=== PATIENT | female | born 1985 | race Caucasian/White ===

== ENCOUNTER 2016-10-18 19:12 | Emergency (ER) | payer MEDICAID ==
[2016-10-18 19:52] VITALS: TEMP 98.2
--- NOTE | 2016-10-18 20:05 | ED PDOC ---
HPI: Allergic Reaction Time Seen by Provider: 10/18/16 19:55 Chief Complaint (Nursing): Allergic Reaction Chief Complaint (Provider): allergic reaction History Per: Patient History/Exam Limitations: no limitations Onset/Duration Of Symptoms: Days (x 3) Current Symptoms Are (Timing): Still Present Possible Cause: Medication (percocet) Associated Symptoms: Skin Rash, Redness Additional Complaint(s): Sammi Alvarado is a 31 year old female, with a preious medical history of asthma, who presents to the ED with complaints of a possible allergic reaction ongoing for the past 3 days. Pt reports to undergoing a surgical procedure for a biopsy sample and was prescribed percocet 4 days ago. Pt reports since taking the percocet she began to experience rashes to the skin and states to feeling her throat is swelling. Pt denies any shortness of breath or difficulty swallowing. Pt denies any other medical complaint at this time. PMD: none provided Past Medical History Reviewed: Historical Data, Nursing Documentation, Vital Signs Vital Signs: Last Vital Signs Temp 98.2 F 10/18/16 19:47 Pulse 114 H 10/18/16 19:47 Resp 17 10/18/16 19:47 BP 150/92 H 10/18/16 19:47 Pulse Ox 99 10/18/16 19:47 - Medical History PMH: Diabetes - Family History Family History: States: Unknown Family Hx - Home Medications Home Medications: Ambulatory Orders Medication Instructions Recorded Famotidine [Pepcid] 20 mg PO DAILY #5 tab 10/18/16 predniSONE [predniSONE Tab] 20 mg PO DAILY #12 tab 10/18/16 traMADol [Ultram] 50 mg PO Q6H PRN #15 tab 10/18/16 - Allergies Allergies/Adverse Reactions: Allergies Allergy/AdvReac Type Severity Reaction Status Date / Time Penicillins Allergy Mild RASH Verified 10/18/16 19:52 Review of Systems ROS Statement: Except As Marked, All Systems Reviewed And Found Negative ENT: Positive for: Throat Swelling Respiratory: Negative for: Shortness of Breath Skin: Positive for: Rash Physical Exam - Reviewed Nursing Documentation Reviewed: Yes Vital Signs Reviewed: Yes - Physical Exam Appears: Positive for: Well, Non-toxic, No Acute Distress Head Exam: Positive for: ATRAUMATIC, NORMAL INSPECTION, NORMOCEPHALIC Skin: Positive for: Warm, Dry, Rash (diffuse maculopapular. varies in shape and size. ) ENT: Positive for: Normal ENT Inspection. Negative for: Pharyngeal Erythema, Tonsillar Exudate, Tonsillar Swelling Neck: Positive for: Normal, Painless ROM Cardiovascular/Chest: Positive for: Regular Rate, Rhythm Respiratory: Positive for: Normal Breath Sounds. Negative for: Decreased Breath Sounds, Accessory Muscle Use, Respiratory Distress Extremity: Positive for: Normal ROM Neurologic/Psych: Positive for: Alert, Oriented. Negative for: Motor/Sensory Deficits - ECG O2 Sat by Pulse Oximetry: 99 (RA) Pulse Ox Interpretation: Normal Disposition - Clinical Impression Clinical Impression: Allergic reaction - Disposition Referrals: [facility] [Outside] Disposition: Routine/Home Disposition Time: 20:37 Condition: STABLE Prescriptions: Famotidine [Pepcid] 20 mg PO DAILY #5 tab traMADol [Ultram] 50 mg PO Q6H PRN #15 tab PRN Reason: Pain predniSONE [predniSONE Tab] 20 mg PO DAILY #12 tab Instructions: Urticaria (ED) Medical Decision Making Medical Decision Making: Initial Impression: Allergic reaction Initial Plan: * urine * pepcid * solumedrol * reevaluation Scribe Attestation: Documented by Lidya Mcgregor, acting as a scribe for Lela Cao PA-C. Provider Scribe Attestation: All medical record entries made by the Scribe were at my direction and personally dictated by me. I have reviewed the chart and agree that the record accurately reflects my personal performance of the history, physical exam, medical decision making, and the department course for this patient. I have also personally directed, reviewed, and agree with the discharge instructions and disposition.
[2016-10-18 23:25] VITALS: PULSE 105
[2016-10-18 23:40] VITALS: BP 116/80; RESP 18; O2SAT 100
--- NOTE | 2016-10-19 07:42 | CARD ---
APPROVED REPORT EKG Measurement Heart [id number] [id number] [id number] <Conclusion> Sinus tachycardia Minimal voltage criteria for LVH, may be normal variant Borderline ECG
== END 2016-10-18 23:38 | disposition home or self-care (01) ==
LOC: H.ER 19:12
DX: R00.0 Tachycardia, unspecified (principal); E11.9 Type 2 diabetes mellitus without complications; J45.909 Unspecified asthma, uncomplicated

== ENCOUNTER 2017-07-12 12:15 | Emergency (ER) | payer MEDICAID ==
[2017-07-12 12:47] VITALS: BP 135/88; PULSE 88; RESP 16; TEMP 97; O2SAT 100
--- NOTE | 2017-07-12 13:52 | ED PDOC ---
HPI: Abdomen Time Seen by Provider: 07/12/17 12:59 Chief Complaint (Nursing): Abdominal Pain Chief Complaint (Provider): abdominal pain History Per: Patient (32 y/o female here with lower abdominal pain worse after urination x 1 week and 1/2. Notes urine positive. Denies any vaginal bleeding. Has h/o PCOS. Denies any fevers/chills. notes some ruq abdominal pain and attributes it to h/o hernia s/p sx repair January 2017. Has h/ o cholecystectomy as well.) Past Medical History Reviewed: Historical Data, Nursing Documentation, Vital Signs Vital Signs: Last Vital Signs Temp 97.0 F L 07/12/17 12:44 Pulse 88 07/12/17 12:44 Resp 16 07/12/17 12:44 BP 135/88 07/12/17 12:44 Pulse Ox 100 07/12/17 15:25 - Medical History PMH: Diabetes - Surgical History Surgical History: Cholecystectomy (summer 2016) - Family History Family History: States: Unknown Family Hx - Home Medications Home Medications: Ambulatory Orders Medication Instructions Recorded Famotidine [Pepcid] 20 mg PO DAILY #5 tab 10/18/16 predniSONE [predniSONE Tab] 20 mg PO DAILY #12 tab 10/18/16 traMADol [Ultram] 50 mg PO Q6H PRN #15 tab 10/18/16 - Allergies Allergies/Adverse Reactions: Allergies Allergy/AdvReac Type Severity Reaction Status Date / Time Penicillins Allergy Mild RASH Verified 10/18/16 19:52 diphenhydramine Allergy SHORTNESS Verified 07/12/17 12:44 [From Benadryl] OF BREATH hydromorphone [From Dilaudid] Allergy RASH Verified 07/12/17 12:44 oxycodone Allergy RASH Verified 07/12/17 12:44 Review of Systems ROS Statement: Except As Marked, All Systems Reviewed And Found Negative Gastrointestinal: Positive for: Abdominal Pain Genitourinary Female: Positive for: Dysuria Physical Exam - Reviewed Nursing Documentation Reviewed: Yes Vital Signs Reviewed: Yes - Physical Exam Appears: Positive for: Well, Non-toxic, No Acute Distress Head Exam: Positive for: ATRAUMATIC, NORMAL INSPECTION, NORMOCEPHALIC Skin: Positive for: Normal Color, Warm, DRY Eye Exam: Positive for: EOMI, Normal appearance, PERRL ENT: Positive for: Normal ENT Inspection Neck: Positive for: Normal, Painless ROM Cardiovascular/Chest: Positive for: Regular Rate, Rhythm Respiratory: Positive for: CNT, Normal Breath Sounds Gastrointestinal/Abdominal: Positive for: Normal Exam, Bowel Sounds, Soft, Tenderness (ruq tenderness noted. Nontender lower abdomen.) Pelvic Exam: Positive for: Other (CLOSED CERVIX.). Negative for: Active Bleeding, Tender W/Cervical Motion, Tender Adnexa Back: Positive for: Normal Inspection Extremity: Positive for: Normal ROM Neurologic/Psych: Positive for: Alert, Oriented - Laboratory Results Result Diagrams: 07/12/17 13:50 07/12/17 13:50 Urine POC: Positive - ECG O2 Sat by Pulse Oximetry: 100 - Progress ED Course And Treament: IMPRESSION: Tiny gestational sac below threshold for calculation of reliable gestational age. No pole or yolk sac identified. Simple cyst left adnexa. No visible ectopic gestation. Disposition - Clinical Impression Clinical Impression: Abdominal pain during - Patient ED Disposition Is Patient to be Admitted: No - Disposition Disposition: Routine/Home Disposition Time: 15:31 Condition: FAIR Additional Instructions: F/U IN 2 DAYS FOR REPEAT BETA HCG AND AGAIN IN 4 DAYS. Instructions: Abdominal Pain in (ED) Forms: [facility] ([place]ian), [facility] ED School/Work Excuse
[2017-07-12 14:02] LABS: BASO % 0.3 % (0.0-2.0); EOS # 0.2 K/uL (0.0-0.7); EOS % 1.4 % (0.0-4.0); HEMATOCRIT 37.1 % (34.0-47.0); LYMPH # 3.6 K/uL (1.0-4.3); MEAN CELL VOLUME 80.4 fl (81.0-99.0); MEAN CORPUSCULAR HEMOGLOBIN 25.9 pg (27.0-31.0); MEAN CORPUSCULAR HGB CONC 32.2 g/dL (33.0-37.0); MEAN PLATELET VOLUME 9.2 fl (7.2-11.7); MONO # 0.6 K/uL (0.0-0.8); MONO % 4.6 % (0.0-10.0); NEUT # 7.6 K/uL (1.8-7.0); NEUT % 63.7 % (50.0-75.0); RED CELL DISTRIBUTION WIDTH 16.5 % (11.5-14.5); WHITE BLOOD COUNT 11.9 K/uL (4.8-10.8)
[2017-07-12 14:09] LABS: ALKALINE PHOSPHATASE 73 U/L (38-126); ALT/SGPT 102 U/L (9-52); AST/SGOT 81 U/L (14-36); BILIRUBIN,TOTAL 1.2 mg/dl (0.2-1.3); BLOOD UREA NITROGEN 6 mg/dl (7-17); CALCIUM 8.5 mg/dL (8.4-10.2); CARBON DIOXIDE 21 mmol/L (22-30); CHLORIDE 106 mmol/L (98-107); GFR AFRICAN-AMERICAN > 60; GLUCOSE,RANDOM 251 mg/dL (65-105); SODIUM 137 mmol/l (132-148); TOTAL PROTEIN 8.9 G/DL (6.3-8.2)
[2017-07-12 14:25] LABS: ALB/GLOB RATIO 0.9 (1.0-2.1)
[2017-07-12 14:27] LABS: RBC URINE 3 /hpf (0-3); URINE BILIRUBIN NEGATIVE (NEGATIVE); URINE BLOOD NEGATIVE (NEGATIVE); URINE COLOR YELLOW (YELLOW); URINE GLUCOSE (UA) >=500 mg/dL (Normal); URINE KETONE NEGATIVE (NEGATIVE); URINE LEUKOCYTE ESTERASE NEG Leu/uL (Negative); URINE PROTEIN NEGATIVE (NEGATIVE); URINE UROBILINOGEN 0.2-1.0 mg/dL (0.2-1.0); WBC URINE 1 /hpf (0-5)
--- NOTE | 2017-07-12 15:05 | US ---
HISTORY: Ectopic gestation suspected. Beta HCG results: Pending LMP 04/26/2017 COMPARISON: None available. TECHNIQUE: Transvaginal only. Real -time technique with 2D, duplex and color Doppler FINDINGS: UTERUS: Measures 4.8 x 5 x 7.1 cm. Normal in size and appearance. No fibroid or other mass lesion seen. ENDOMETRIUM: Measures 14 3 mm in diameter. Tiny saclike structure 2 x 3 x 4 mm. Below the threshold for calculation of a reliable gestational age CERVIX: No cervical abnormality identified. Closed cervix, cervical length 3.37 cm RIGHT OVARY: Measures 1.7 x 2 x 2.7 cm. No solid mass. Normal flow. LEFT OVARY: Measures 3.6 x 2.7 x 3.5 cm. No solid mass. Normal flow. Simple cyst 1.6 x 1.7 x 2.3 cm FREE FLUID: No significant free fluid noted. OTHER FINDINGS: None. IMPRESSION: Tiny gestational sac below threshold for calculation of reliable gestational age. No pole or yolk sac identified. Simple cyst left adnexa. No visible ectopic gestation.
== END 2017-07-12 15:46 | disposition home or self-care (01) ==
LOC: H.ER 12:15
DX: O26.899 Other specified pregnancy related conditions, unspecified trimester (principal); E11.9 Type 2 diabetes mellitus without complications; Z88.0 Allergy status to penicillin

== ENCOUNTER 2017-07-14 08:31 | Emergency (ER) | payer MEDICAID ==
[2017-07-14 08:35] VITALS: BMI 34.9
[2017-07-14 08:37] VITALS: BP 125/84; PULSE 80; RESP 16; TEMP 98.2; O2SAT 100
--- NOTE | 2017-07-14 09:28 | ED PDOC ---
HPI: Female Pain Time Seen by Provider: 07/14/17 08:41 Chief Complaint (Nursing): Female Genitourinary Chief Complaint (Provider): Beta-HCG reevaluation History Per: Patient History/Exam Limitations: no limitations Onset/Duration Of Symptoms: Days (x2) Current Symptoms Are (Timing): Still Present Additional Complaint(s): Sammi Alvarado is a 32 year old female with a past surgical history of right breast fatty tissue removal and a cholecystectomy presenting to the ED for a re - evaluation of beta HCG levels s/p positive . The patient reports she was here 2 days prior to arrival and received an ultrasound of her abdomen reporting a positive . The patient had her beta-HCG levels initially checked and is now presenting for a re-evaluation of her beta-HCG levels. The patient states associated lower abdominal pain, describing a cramping sensation , nausea, back pain, and minor vaginal itching. She denies vomiting, diarrhea, chest pain, shortness of breath, dizziness, numbness, weakness, urinary urgency , urinary frequency, dysuria, or vaginal discharge. PMD: David Alcaraz MD Past Medical History Reviewed: Historical Data, Nursing Documentation, Vital Signs Vital Signs: Last Vital Signs Temp 98.2 F 07/14/17 08:36 Pulse 80 07/14/17 08:36 Resp 16 07/14/17 08:36 BP 125/84 07/14/17 08:36 Pulse Ox 100 07/14/17 08:36 - Medical History PMH: Diabetes - Surgical History Surgical History: Cholecystectomy (summer 2016) Other surgeries: fatty tissue removal from right breast - Family History Family History: States: No Known Family Hx - Social History Current smoker - smoking cessation education provided: No Ex-Smoker (has not smoked in the last 12 months): No Alcohol: None Drugs: Denies - Home Medications Home Medications: Ambulatory Orders Medication Instructions Recorded No Known Home Med 07/14/17 - Allergies Allergies/Adverse Reactions: Allergies Allergy/AdvReac Type Severity Reaction Status Date / Time Penicillins Allergy Mild RASH Verified 07/14/17 08:44 diphenhydramine Allergy SHORTNESS Verified 07/14/17 08:44 [From Benadryl] OF BREATH hydromorphone [From Dilaudid] Allergy RASH Verified 07/14/17 08:44 oxycodone Allergy RASH Verified 07/14/17 08:44 Review of Systems ROS Statement: Except As Marked, All Systems Reviewed And Found Negative Cardiovascular: Negative for: Chest Pain Respiratory: Negative for: Cough, Shortness of Breath Gastrointestinal: Positive for: Nausea, Abdominal Pain (lower abdominal pain ( cramping) ) Genitourinary Female: Positive for: Other (vaginal itching). Negative for: Dysuria, Frequency, Incontinence, Vaginal Discharge Musculoskeletal: Positive for: Back Pain Neurological: Negative for: Weakness, Numbness, Headache, Dizziness Physical Exam - Reviewed Nursing Documentation Reviewed: Yes Vital Signs Reviewed: Yes - Physical Exam Appears: Positive for: Non-toxic, No Acute Distress Head Exam: Positive for: ATRAUMATIC, NORMOCEPHALIC Skin: Positive for: Normal Color, Warm, Dry Eye Exam: Positive for: Normal appearance, EOMI, PERRL ENT: Positive for: Normal ENT Inspection Neck: Positive for: Normal, Painless ROM, Supple Cardiovascular/Chest: Positive for: Regular Rate, Rhythm, Chest Non Tender. Negative for: Murmur Respiratory: Positive for: Normal Breath Sounds. Negative for: Respiratory Distress Gastrointestinal/Abdominal: Positive for: Soft, Tenderness (mild tenderness across lower pelvic ) Back: Positive for: Normal Inspection. Negative for: L CVA Tenderness, R CVA Tenderness Extremity: Positive for: Normal ROM. Negative for: Pedal Edema, Deformity Neurologic/Psych: Positive for: Alert, Oriented (x3). Negative for: Motor/ Sensory Deficits - Laboratory Results Interpretation Of Abn Labs: 1670.9 bhcg - ECG O2 Sat by Pulse Oximetry: 100 (RA) Pulse Ox Interpretation: Normal - Progress ED Course And Treament: 1102: Stable. come back in 2 days for repeat bhcg to see progression. AAOx3. Pain gone. No fever. Tolerated PO. Medical Decision Making Medical Decision Making: Time: 08:41 Impression: Repeat beta-HCG Plan: * Beta-HCG, Quantitative * Reevaluation 07/12/17 Transvaginal US Report: FINDINGS: UTERUS: Measures 4.8 x 5 x 7.1 cm. Normal in size and appearance. No fibroid or other mass lesion seen. ENDOMETRIUM: Measures 14 3 mm in diameter. Tiny saclike structure 2 x 3 x 4 mm. Below the threshold for calculation of a reliable gestational age CERVIX: No cervical abnormality identified. Closed cervix, cervical length 3.37 cm RIGHT OVARY: Measures 1.7 x 2 x 2.7 cm. No solid mass. Normal flow. LEFT OVARY: Measures 3.6 x 2.7 x 3.5 cm. No solid mass. Normal flow. Simple cyst 1.6 x 1.7 x 2.3 cm FREE FLUID: No significant free fluid noted. OTHER FINDINGS: None. IMPRESSION: Tiny gestational sac below threshold for calculation of reliable gestational age. No pole or yolk sac identified. Simple cyst left adnexa. No visible ectopic gestation. Patient's previous beta-HCG levels were 1190 mIU/mL on 07/12/17. Scribe Attestation: Documented by Audelia Martines, acting as a scribe for German Nava MD. Provider Scribe Attestation: All medical record entries made by the Scribe were at my direction and personally dictated by me. I have reviewed the chart and agree that the record accurately reflects my personal performance of the history, physical exam, medical decision making, and the department course for this patient. I have also personally directed, reviewed, and agree with the discharge instructions and disposition. Disposition - Clinical Impression Clinical Impression: Abdominal pain during - Patient ED Disposition Is Patient to be Admitted: No Counseled Patient/Family Regarding: Studies Performed, Diagnosis, Need For Followup - Disposition Referrals: [facility] [Outside] - [facility] - 07/17/17 Disposition: Routine/Home Disposition Time: 11:04 Condition: STABLE Additional Instructions: Return if not better in 3 days. Instructions: Abdominal Pain in (ED)
== END 2017-07-14 12:10 | disposition home or self-care (01) ==
LOC: H.ER 08:31
DX: O26.899 Other specified pregnancy related conditions, unspecified trimester (principal); E11.9 Type 2 diabetes mellitus without complications; Z87.891 Personal history of nicotine dependence; Z88.0 Allergy status to penicillin; Z88.5 Allergy status to narcotic agent